=== PATIENT | female | born 1975 | race Caucasian/White ===

== ENCOUNTER 2016-09-24 08:40 | Day surgery (SDC) | payer OTHER ==
[~2016-09-24 08:40] MED LIST: ACETAMINOPHEN 500 MG TABLET PO PRN; HYDROmorphone HCL 2 MG/ML VIAL IV PRN; MAG HYDROX/ALUMINUM HYD/SIMETH 30 ML UDC PO PRN; MAGNESIUM HYDROXIDE 30 ML UDC PO PRN; ONDANSETRON HCL/PF 2 MG/ML VIAL IV PRN; PROMETHAZINE HCL 25 MG in DEXTROSE 5 % IN WATER 50 ML IV PRN; RINGER'S SOLUTION,LACTATED 1,000 ML IV PRN; ZOLPIDEM TARTRATE 5 MG TABLET PO PRN; ceFAZolin SODIUM 1 GM VIAL IV PRN; diphenhydrAMINE HCL 50 MG/ML VIAL IV PRN; oxyCODONE HCL/ACETAMINOPHEN 1 TAB TABLET PO PRN
--- OUTSIDE RECORDS SUMMARY | 2016-09-24 08:43 | XMS REPORT | Continuity of Care Document ---
:1975 Demographics Phone Unavailable Preferred Language Unknown Marital Status Unknown Denominational Affiliation Unknown Race Unknown Ethnic Group Unknown Author Organization [facility] ([facility]) [place] [address] Phone [phone] Care Team Providers Name Role Phone Unavailable Primary Care Provider Unavailable Source Comments This disclosure is being made pursuant to the Care Everywhere program, applicable federal and state laws, and may not contain all informaitonavailable regarding this patient.[facility] ([facility]) Active Allergies and Adverse Reactions Not on File Current Medications Not on file Active Problems Not on file Social History Tobacco Use Types Packs/Day Years Used Date Never Assessed Plan of Care Health Maintenance Due Date Last Done Comments Hepatitis B Vaccine (1 of 3 - Primary Series) 1975 Tdap Vaccine 1987 Lipid Disorder Screening 1994 MMR Vaccine 1994 Td Vaccine 1994 Cervical Cancer Screening 2006 Influenza Vaccine: Seasonal (#1) 01/30/2016 Results from Last 3 Months Not on file
[2016-09-24] MEDS ORDERED: RINGER'S SOLUTION,LACTATED 1,000 ML IV ONE (09:47)
--- NOTE | 2016-09-24 12:14 | OR ---
Operative Report - Dictated Report Narrative: Date: 09/24/2016 Physician: Denilson Howard M.D. Ground Control Approach Technician: Axel Henderson PA-C Preoperative diagnosis: Recurrent right Shoulder rotator cuff tear Postoperative diagnosis: Recurrent right Shoulder supraspinatus rotator cuff tear, recurrent anterior labral tear, biceps instability, chondromalacia humeral head Procedure: Right shoulder arthroscopy with repeat anterior labral repair, mini open revision rotator cuff repair, biceps tenotomy Anesthesia: General plus regional Complications: None Estimated blood loss: Minimal Specimens: None Retained implants: [employer] 2.3 mm bio Raptor peek labral anchor straight 1 curve 1, 4.5 mm peek helicoil anchor 2, footprint anchor 2 Drains: None Indications: Mrs. Chahal Is a 41 year-old female who has been followed in my clinic with complaints of shoulder pain consistent with rotator cuff pathology. She previously undergone labral and rotator cuff repairs and based on exam and MRI appeared to have recurrent pathology. Physical exam and diagnostic imaging were consistent with his complaints and concern for rotator cuff tear. Conservative measures have failed including, but not limited to, passage of time , activity modification, medications, physical therapy/home exercise program, or injections. The risks, benefits, and alternatives were discussed in clinic. The risks being , bleeding, infection, blood clots, nerve, tendon, ligament, blood vessel injury, persistent pain, arthrosis, stiffness, need for prolonged therapy, need for additional procedures, and persistent symptoms. Consent was obtained in the clinic. Procedure: After marking the correct extremity in the preoperative holding area, a timeout was performed in the operating room. IV antibiotics consisting of Ancef were administered prior to the procedure. A general followed by regional anesthetic was induced by the nurse station supervisor. This was in the supine position, then the patient was transitioned to a beachchair position with all bony prominences well-padded, head in neutral, the nonoperative arm well supported, and the legs padded with SCDs in place. The operative shoulder was then prepped and draped in a standard sterile fashion. Preoperatively the shoulder had full passive range of motion, and grade 1 anterior instability. After marking out the bony landmarks, saline was infused into the joint through a posterior lateral portal site. A dennys incision was made, and the blunt trocar and cannula was introduced into the shoulder joint. An accessory portal was placed in the rotator cuff interval using a spinal needle for guidance. Upon initial evaluation, the biceps tendon showed instability with subluxation inferiorly but no anastacia tear. The middle glenohumeral ligament was intact. Subscapularis tendon was intact. The glenoid showed retained suture over the anterior aspect of the glenoid consistent with her prior labral repair. The humeral head articular surface showed a roughened articular surface but no loose chondral edges. The anterior labrum was torn and elevated from approximately the 1:00 to 3:00 positions. The superior labrum was intact. The pouch was and unremarkable. The posterior labrum was unremarkable. The supraspinatus tendon was thin and torn from behind the biceps to the infraspinatus. There was visible suture which had pulled through the tendon. The infraspinatus tendon was intact posteriorly with minimal tear anteriorly. Utilizing the prior lateral incision and accessory portal was made and the greater tuberosity and rotator cuff tendon were debrided down to bleeding cortical bone. Utilizing the anterior portal to anchors were placed at the 1:30 and 2:30 positions. The sutures last around the labrum and a small pinch of anterior capsule in order to place a bumper and repair of the anterior labrum. This was tied with the knots away from the joint resulting in significant improved compression of the anterior labrum to the anterior glenoid as well as improvement in the anterior subluxation. This was done after rasping and shaving the anterior margin of the glenoid. Her previous suture was removed as well from the anterior glenoid as well as the greater tuberosity. Secondary to her anterior and inferior biceps instability, a biceps tenotomy was performed at the labral insertion. This was debrided and shaved down to the root. The biceps tendon was allowed to mobilize distally. Attention was then turned to the subacromial space. Subacromial bursectomy was performed utilizing the prior portals. The coracoacromial ligament was intact. The bursal side of the rotator cuff demonstrated a tear as identified intra-articularly as well as some retained suture. The acromial arch was unremarkable. Based on the arthroscopic findings, as well as exam and radiographic findings, it was elected to proceed with a mini open rotator cuff repair. A longitudinal incision centered over the previously identified rotator cuff tear was made just off the edge of the acromion. This was approximately 3 centimeters in length. The deltoid fascia was split sharply in line with its fibers, and blunt dissection was carried through the deltoid muscle. Any remaining subacromial bursal tissue was debrided in order to expose the underlying rotator cuff tear. The rotator cuff tear appeared to be transverse orientation. The tuberosity was debrided of its soft tissues producing a bleeding bed for the tendon to be secured to. Two 4.5 mm PEEK helicoil anchor was placed just off the articular surface of the humeral head. A series of horizontal mattress sutures were placed at the prepared edge of the rotator cuff. This allowed for a tension-free return of the tendon to the greater tuberosity. The sutures were then passed longitudinally into 2 4.5 mm PEEK footprint anchor. This was performed and a suture bridge technique. This gave good overall compression to the rotator cuff at the insertion site. The shoulders place a range of motion and had no lift off of the repair site as well as no crepitance or signs of impingement. Full passive range of motion was able to be obtained. Once it was felt that the rotator cuff was adequately repaired, the wounds were thoroughly irrigated. 0 Vicryl was utilized in order to repair the deltoid fascia. 3-0 Vicryl was placed in the subcutaneous tissue. The rotator cuff incision as well as the portal sites were closed with interrupted nylon. Dressings consisting of Xeroform, 4 x 4, ABD, soft roll, and tape were applied. All sponge, needle, blade, and instrument counts were correct prior to closing the wounds. The patient was awoken and transferred to the postanesthesia care unit in stable condition.
[2016-09-24 14:14] VITALS: BP 133/95
[2016-09-24] MEDS ORDERED: SENNOSIDES/DOCUSATE SODIUM 1 TAB TABLET PO SCH (21:00)
== END 2016-09-24 08:41 | disposition home or self-care (01) ==
LOC: AMB 08:40
PROVIDERS: ATTEND Orthopaedic Surgery
PROC: 0RBJ4ZZ Excision of Right Shoulder Joint, Percutaneous Endoscopic Approach (ICD-10-PCS; 2016-09-24)
PROC: 0LQ10ZZ Repair Right Shoulder Tendon, Open Approach (ICD-10-PCS; 2016-09-24)
PROC: 0MM14ZZ Reattachment of Right Shoulder Bursa and Ligament, Percutaneous Endoscopic Approach (ICD-10-PCS; principal; 2016-09-24 11:00)
DX: M75.101 Unspecified rotator cuff tear or rupture of right shoulder, not specified as traumatic (principal); S43.491A Other sprain of right shoulder joint, initial encounter; M25.311 Other instability, right shoulder; M94.211 Chondromalacia, right shoulder; I10 Essential (primary) hypertension; J45.909 Unspecified asthma, uncomplicated; J44.9 Chronic obstructive pulmonary disease, unspecified; F32.9 Major depressive disorder, single episode, unspecified; F17.200 Nicotine dependence, unspecified, uncomplicated; Z68.20 Body mass index [BMI] 20.0-20.9, adult

== ENCOUNTER 2019-03-09 12:39 | Observation (INO) ==
[2019-03-09] MEDS ORDERED: diphenhydrAMINE HCL 50 MG/ML VIAL IV ONE (12:58)
[2019-03-09] MEDS ORDERED: METOCLOPRAMIDE HCL 5 MG/ML VIAL IV ONE (12:58)
[2019-03-09] MEDS ORDERED: NORMAL SALINE 1,000 ML IV ONE (12:58)
--- NOTE | 2019-03-09 13:01 | ERNOTE ---
Abdominal HPI - General Chief Complaint: Abdominal Pain Time Seen by Provider: 03/09/19 12:52 Source: patient Exam Limitations: no limitations - Immun/Allergies/Home Medications Immunizatons: IMMUNIZATION HX Immunizations Up to Date Yes History of Influenza Vaccine No Hx Pneumococcal Vaccination No Allergies/Adverse Reactions: Allergies acetaminophen [From Tylenol] Adverse Reaction (Mild, Verified 03/09/19 12:54) upset stomach gabapentin Adverse Reaction (Mild, Verified 03/09/19 12:54) DIZZINESS hydrocodone bitartrate [From Vicodin] Adverse Reaction (Mild, Verified 03/09/19 12:54) Itching ibuprofen [From Motrin] Adverse Reaction (Mild, Verified 03/09/19 12:54) UPSET STOMACH tramadol Adverse Reaction (Mild, Verified 03/09/19 12:54) UPSET STOMACH, RED BUMPS, VOMITING varenicline [From Chantix] Adverse Reaction (Mild, Verified 03/09/19 12:54) Other "bad dreams" Home Medications: HOME MEDICATIONS albuterol sulfate HFA 90 mcg/actuation aerosol inhaler 2 inh IH Q6H PRN #18 g 06/05/18 [Last Taken Unknown] hydroxychloroquine 200 mg tablet 200 mg PO DAILY PRN tab 12/10/18 [Last Taken Unknown] furosemide 80 mg tablet 80 mg PO DAILY 01/13/19 [Last Taken Unknown] metoprolol succinate ER 50 mg tablet,extended release 24 hr 50 mg PO DAILY #90 tab 01/13/19 [Last Taken Unknown] Ciprofloxacin HCl [Cipro] 500 mg PO BID #10 tab 02/25/19 [Last Taken Unknown] - History of Present Illness Narrative: Patient complains of right upper quadrant abdominal pain secondary to her advanced cirrhosis. She states she did go back to drinking but has not had much alcohol she claims in the last approximately 3 weeks. She also complains of having nausea and vomiting. Timing: constant, intermittent Quality: moderate Activities at Onset: none Associated Symptoms: Present: nausea, vomiting Prior Abdominal Problems: Present: similar symptoms Prior Treatment: Present: recently seen Review of Systems - Review of Systems Constitutional: Present: See HPI EYE: Present: no symptoms reported ENT: Present: no symptoms reported Respiratory: Present: no symptoms reported Cardiology: Present: no symptoms reported Gastrointestinal/Abdominal: Present: See HPI Genitourinary: Present: no symptoms reported Musculoskeletal: Present: no symptoms reported Skin: Present: no symptoms reported Neurological: Present: no symptoms reported Endocrine: Present: no symptoms reported Hematologic/Lymphatic: Present: no symptoms reported Psych: Present: no symptoms reported Medical History (Updated 02/22/19 @ 21:14 by DAYTON Doty) Lupus (Chronic) Onset Date: Unknown Hypertension (Chronic) Onset Date: Unknown Depression (Chronic) Onset Date: Unknown COPD (chronic obstructive pulmonary disease) (Chronic) Onset Date: Unknown Asthma (Chronic) Onset Date: ~2004 Hepatitis Liver failure Abnormal Pap smear of cervix Onset Date: Unknown Allergic rhinitis Onset Date: Unknown Bankart lesion Onset Date: 04/08/13 Closed fracture Onset Date: ~07/2010 left scaphoid History of endometrial biopsy Onset Date: 04/20/11 benign History of hysteroscopy Onset Date: 06/20/11 menometrorrhagia Irregular menses Onset Date: Unknown Low back pain Onset Date: ~2012 Ovarian cyst Onset Date: Unknown Surgical History: Surgical History (Updated 04/08/18 @ 14:39 by Patricia Hernandez PILE OPERATOR) Encounter for tubal ligation Onset Date: ~2003 History of arthroscopy of right shoulder Onset Date: 09/07/13 SLAP repair right; 09/2015 - w/ mini open RCR, anterior labral repair, SAD w/ acromioplasty R shoulder arthroscopy with repeat anterior labral repair, mini open revision RCR, biceps tenotomy 09-24-16 . History of back surgery Onset Date: 04/25/15 L4-L5 per at [facility] History of colposcopy Onset Date: ~2010 History of endometrial ablation Onset Date: 06/20/11 Novasure S/P excision of lipoma Onset Date: 01/21/15 Tinguely - right lower back S/P tonsillectomy and adenoidectomy Onset Date: ~1994 S/P wrist surgery Onset Date: 07/18/10 left wrist fx [place] teeth extracted Onset Date: ~1994 Family History: Family History (Updated 04/08/18 @ 14:42 by Patricia Hernandez CMA) Grandmother Diabetes Heart disease Cancer maternal - ovarian and breast cancer Mother Cancer ovarian cancer at age 52 Sister Drowning age 4 Son Cancer skin cancer, TSH levels were high Aunt Cancer maternal aunt breast cancer at age 55 Social History: (Last Reviewed 03/09/19 @ 12:54 by Ely Bentley RN) Social History: adopted: No foster care: No Marital status: lives independently: No household members: significant other, children number of children: 3 caregiver/support person: No current occupational status: employed current occupation: food services Highest education level completed: some college, no degree Service: No Tobacco: Smoking Status: Current every day smoker tobacco type: cigarettes Smoking cigarettes per day: 10 Alcohol: alcohol intake: current Alcohol type: beer, wine alcohol intake frequency: 3 or more drinks per day details: a couple drinks at a time/ pt has been alcohol free for 54 days Substance Use: substance use type: does not use Dietary Habits: caffeine: Yes caffeine comment: 4 daily Type: carbonated beverages Exercise: Physical activity type: none Physical Exam - Physical Exam General Appearance: Present: wd/wn, alert, moderate distress Head Exam: Present: normal inspection, no evidence of injury Eye Exam: Normal inspection: bilateral, PERRL: bilateral Ears, Nose, Throat: Present: normal pharynx, dry mucous membranes Neck: Present: normal inspection, nontender Respiratory: Present: no respiratory distress, normal breath sounds, no accessory muscle use, chest nontender, lungs clear Cardiovascular/Chest: Present: no murmur, normal peripheral pulses, tachycardia Gastrointestinal/Abdominal: Present: normal bowel sounds, nontender, nondistended, soft, no organomegaly Rectal Exam: Present: deferred Back Exam: Present: normal inspection, normal range of motion Extremity Exam: Present: normal inspection, non-tender, no edema, normal range of motion Neurological Exam: Present: alert, oriented, normal mood/affect Skin Exam: Present: warm/dry, jaundice, pallor Lymphatic Exam: Present: no adenopathy Progress - Results and Orders Patient's Lab Results:: I have reviewed the patient's lab results. - Vital Signs Patient's Vital Signs:: I have reviewed the patient's vital signs. Vital Signs: Vital Signs 03/09/19 12:51 Temperature 37.1 C Pulse Rate 138 H Respiratory Rate 21 H Blood Pressure 120/82 O2 Sat by Pulse Oximetry 99 - X-Ray X-Ray #1 X-Ray: abdomen Interpretation: Reviewed by me - Progress/Reassessment Chief Complaint: Abdominal Pain Plan - Plan Plan: Patient will need to be admitted for correction of the hyperkalemia, treating the UTI, correcting the dehydration and general metabolic support Departure Clinical Impression: Hypokalemia, Dehydration Liver failure Qualifiers: Liver failure chronicity: chronic Hepatic coma status: without hepatic coma Qualified Code(s): K72.10 - Chronic hepatic failure without coma UTI (urinary tract infection) Qualifiers: Urinary tract infection type: acute cystitis Hematuria presence: without hematuria Qualified Code(s): N30.00 - Acute cystitis without hematuria Intractable nausea and vomiting Qualifiers: Vomiting type: unspecified Qualified Code(s): R11.2 - Nausea with vomiting, unspecified - Departure Disposition: Still a patient Condition: Fair Referrals: Edilia Pillai FNP [Primary Care Provider] -
[2019-03-09 13:27] LABS: Hematocrit 31.5 % (37.0-47.0); Mean Cell Volume 94.9 fl (78-100); Mean Corpuscular Hemoglobin 33.1 pg (27-31); Mean Corpuscular Hgb Conc 34.9 g/dl (32-36); Mean Platelet Volume 10.1 fl (8-12.5); Neutrophil # 3.2 K/mm3 (1.3-6.0); Neutrophil % 72.3 % (42-75.0); Red Blood Count 3.32 M/mm3 (4.2-5.4); Red Cell Distribution Width 14.6 % (11.5-14.0); White Blood Count 4.4 K/mm3 (4.0-10.5)
[2019-03-09 13:30] LABS: Prothrombin Time (Patient) 21.1 Seconds (9.1-10.7)
[2019-03-09 13:31] LABS: INR 2.2 INR (0.92-1.08)
[2019-03-09 13:34] LABS: Albumin * 2.4 gm/dl (3.4-5.0); Anion Gap 15.2 mmol/L (6.8-13.8); BUN/Creatinine Ratio 10.5 (9.0-21.6); Bilirubin, Total 6.4 mg/dL (0.0-1.1); Ca. Corrected For Albumin 8.6 mg/dL (8.4-10.2); Calcium * 7.6 mg/dL (7.9-10.9); Carbon Dioxide 25.2 mmol/L (24-32.6); Total Protein 6.4 gm/dL (6.2-8.2)
[2019-03-09 13:35] LABS: Platelet Count 65 K/mm3 (150-450)
[2019-03-09 13:35] LABS: Urine Bilirubin 6 mg/dl (NEGATIVE); Urine Ketone 50 mg/dL (NEGATIVE); Urine Protein 100 mg/dL (NEGATIVE); Urine Urobilinogen 4 EU/dl (NORMAL); Urine pH 6.5 pH (5.0-7.0)
[2019-03-09 13:37] LABS: Potassium 2.4 mmol/L (3.4-4.6)
[2019-03-09 13:39] LABS: Urine Appearance Slightly Cloudy (CLEAR); Urine Blood 5 /ul (NEGATIVE); Urine Nitrite Positive (NEGATIVE)
[2019-03-09 13:40] LABS: Urine Bacteria 3+; Urine Color Brown; Urine RBC 0-5 /hpf (0-5); Urine WBC 0-5 /hpf (0-5)
[2019-03-09] MEDS ORDERED: POTASSIUM CHLORIDE 20 MEQ TABLET.SA PO ONE (13:42)
[2019-03-09] MEDS ORDERED: cefTRIAXone SODIUM 1,000 MG/100 ML BAG IV ONE (13:45)
[2019-03-09] MEDS ORDERED: POTASSIUM CHLORIDE 40 MEQ in NORMAL SALINE 1,000 ML IV SCH (16:00)
[2019-03-09] MEDS ORDERED: ALBUTEROL SULFATE 2.5 MG/0.5 ML VIAL.NEB IH PRN (16:33)
[2019-03-09] MEDS ORDERED: HYDROXYCHLOROQUINE SULFATE 200 MG TABLET PO PRN (16:33)
[2019-03-09] MEDS: POTASSIUM CHLORIDE 20 MEQ TABLET.SA PO SCH (16:50)
[2019-03-09] MEDS: IBUPROFEN 600 MG TABLET PO PRN (16:50)
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
[2019-03-09] MEDS ORDERED: METOPROLOL SUCCINATE 50 MG TABLET.SA PO ONE (17:49)
[2019-03-09] MEDS: CIPROFLOXACIN HCL 500 MG TABLET PO SCH (20:08)
[2019-03-10] MEDS: IBUPROFEN 600 MG TABLET PO PRN (01:29)
[2019-03-10 05:51] LABS: Hematocrit 29.4 % (37.0-47.0); Hemoglobin 9.7 gm/dL (12.5-16.0); Mean Cell Volume 98.7 fl (78-100); Mean Corpuscular Hemoglobin 32.6 pg (27-31); Mean Platelet Volume 10.3 fl (8-12.5); Platelet Count 57 K/mm3 (150-450); Red Blood Count 2.98 M/mm3 (4.2-5.4); Red Cell Distribution Width 14.8 % (11.5-14.0); White Blood Count 4.5 K/mm3 (4.0-10.5)
[2019-03-10 05:54] LABS: Total Cells Counted 100
[2019-03-10 06:02] LABS: Anion Gap 13.2 mmol/L (6.8-13.8); BUN/Creatinine Ratio 14.1 (9.0-21.6); Bilirubin, Total 5.6 mg/dL (0.0-1.1); Ca. Corrected For Albumin 8.3 mg/dL (8.4-10.2); Carbon Dioxide 22.7 mmol/L (24-32.6); Potassium 2.9 mmol/L (3.4-4.6); Total Protein 5.3 gm/dL (6.2-8.2)
[2019-03-10 06:19] LABS: Basophil 1 % (0-1); Eosinophil 2 % (0-3); Immature Granulocyte 2 (0-1); Lymphocyte 28 % (20-51); Monocyte 5 % (0-9); Neutrophil 62 % (42-75); Neutrophil # 2.8 K/mm3 (1.3-6.0)
[2019-03-10 06:20] LABS: Platelet Estimate Decreased (NORMAL); Target Cells 1+
[2019-03-10] MEDS: CIPROFLOXACIN HCL 500 MG TABLET PO SCH (08:16)
[2019-03-10] MEDS: POTASSIUM CHLORIDE 20 MEQ TABLET.SA PO SCH (08:16)
[2019-03-10] MEDS ORDERED: METOPROLOL SUCCINATE 50 MG TABLET.SA PO SCH (09:00)
[2019-03-10] MEDS ORDERED: FUROSEMIDE 80 MG TABLET PO SCH (09:00)
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
[2019-03-10 13:05] VITALS: BP 95/74
== END 2019-03-10 13:12 | disposition home or self-care (01) ==
LOC: ER 12:39 → MS 12:39
PROVIDERS: ADMIT Internal Medicine; ATTEND Internal Medicine
CPT/HCPCS: 36415; 74019; 74020; 80053; 80320; 81001; 82140; 83605; 83690; 83735; 84132; 85025; 85610; 87040; 87077; 87086; 87186; 96365; 96366; 96367; 99285; G0378; G0481